=== PATIENT | male | born 1975 | race Caucasian/White ===

== ENCOUNTER 2016-05-03 10:37 | Emergency (ER) | payer OTHER ==
[2016-05-03 11:13] VITALS: RESP 18; TEMP 98
[2016-05-03] MEDS ORDERED: NS 1,000 ML IV ONE (11:13)
[2016-05-03] MEDS ORDERED: ONDANSETRON 4 MG/2 ML VIAL IVP ONE ×2 (11:14→13:09)
[2016-05-03 11:24] LABS: % IMMATURE GRANULYOCYTES 0.4 % (0.0-1.1); ABSOLUTE IMMATURE GRANULOCYTES 0.03 10^3/uL (0.00-0.10); ADD DIFF? NO; ADD MORPH? NO; ADD SCAN? NO; ATYPICAL LYMPHOCYTE FLAG 20 (0-99); FRAGMENT RBC FLAG 0 (0-99); HEMATOCRIT 48.7 % (40.0-51.0); HEMOGLOBIN 16.6 g/dL (13.7-17.5); LEFT SHIFT FLG 0 (0-99); LIPEMIA HEMOLYSIS FLAG 90 (0-99); MEAN CELL HEMOGLOBIN 29.9 pg (27.9-34.1); MEAN CELL HEMOGLOBIN CONCENTR. 34.1 g/dL (32.4-36.7); MEAN CELL VOLUME 87.7 fL (81.5-99.8); MEAN PLATELET VOLUME 9.8 fL (8.7-11.7); PLATELET CLUMPS FLAG 10 (0-99); PLATELET COUNT 183 10^3/uL (150-400); RED BLOOD CELL COUNT 5.55 10^6/uL (4.40-6.38); RED CELL DISTRIBUTION WIDTH 12.2 % (11.5-15.2)
--- NOTE | 2016-05-03 11:24 | UCPHY ---
H & P Patient Type: New <Mami Corbett M - Last Filed: 05/03/16 13:15> Smoking Status: Never smoked <Fozia Ward - Last Filed: 05/03/16 15:18> Time Seen by Provider: 05/03/16 11:05 HPI/ROS: CHIEF COMPLAINT: Vomiting HISTORY OF PRESENT ILLNESS: 41-year-old male presents to urgent care by private vehicle with multiple episodes of vomiting. Patient states 2 days ago he started feeling sick when he was at work. He vomited. His brought him to his primary care provider. He had normal laboratory studies. He had a negative influenza swab. He states he stated from work yesterday and was feeling better and then early this morning around 6:00 a.m. he developed recurring vomiting. He has vomited at least 6 or 7 times since this morning. No diarrhea. No abdominal pain. No chest pain or difficulty breathing. No other URI symptoms. No fevers or chills. No melena. REVIEW OF SYSTEMS: Constitutional: No fever, no chills. Eyes: No double or blurry vision. ENT: No sore throat. Respiratory: No cough, no shortness of breath. Cardiac: No chest pain. Gastrointestinal: Vomiting as above. No abdominal pain. Loose bowel movement today. Genitourinary: No dysuria. Musculoskeletal: No neck or back pain. Skin: No rashes. Neurological: No headache. (Fozia Ward) Past Medical/Surgical History: Negative (Fozia Ward) Social History: (Fozia Ward) Physical Exam: General Appearance: Alert, no distress. Vital signs are stable. at bedside. Eyes: Pupils equal and round. Extraocular motions are all intact. ENT: Mouth: Mucous membranes dry. Respiratory: No wheezing, rhonchi, or rales, lungs are clear to auscultation. Cardiovascular: Regular rate and rhythm. Gastrointestinal: Abdomen is soft and nontender, no masses, no rebound or guarding, bowel sounds normal. No CVA tenderness bilaterally. Neurological: Alert and oriented x 3, cranial nerves II through XII grossly intact Skin: Warm and dry, no rashes. Musculoskeletal: Nontender to palpate along the cervical, thoracic or lumbar spine. Neck is supple. Extremities: Full range of motion and no peripheral edema. Psychiatric: Patient is oriented X 3, there is no agitation. (Fozia Wrad) Constitutional: Initial Vital Signs Temperature (C) 36.6 C 05/03/16 11:00 Heart Rate 90 05/03/16 11:00 Respiratory Rate 18 05/03/16 11:00 Blood Pressure 128/80 H 05/03/16 11:00 O2 Sat (%) 98 05/03/16 11:00 O2 Delivery Mode Room Air Allergies/Adverse Reactions: No Known Allergies Allergy (Unverified 05/03/16 11:00) Home Medications: Medication Instructions Recorded Ondansetron Odt [Zofran Odt] 4 mg PO Q4PRN #5 tab 05/03/16 Medical Decision Making <Mami Corbett - Last Filed: 05/03/16 13:15> <Fozai Ward - Last Filed: 05/03/16 15:18> ED Course/Re-evaluation: 41-year-old male presents with multiple episodes of vomiting. He has no abdominal pain. Laboratory studies are unremarkable. Patient received IV normal saline as well as IV Zofran. Upon discharge she was feeling much better and was tolerating p.o. fluids. He is comfortable being discharged home. (Fozia Ward) Differential Diagnosis: Including but not limited to gastroenteritis, gastritis, acute appendicitis, GERD, peptic ulcer disease, cholecystitis, cholelithiasis, pancreatitis (Fozia Ward) Other Provider: The patient was evaluated and managed by the Physician Yarn Washer/ Nurse Practitioner. I discussed the patient's presentation and course with the midlevel provider with them and agree with the evaluation. My co-signature indicates that I have reviewed this chart and I agree with the findings and plan of care as documented. I am the secondary supervising physician. (Mami Corbett) - Data Points Laboratory Results: Laboratory Results 05/03/16 11:20 05/03/16 11:20 05/03/16 11:20 WBC 6.95 10^3/uL (3.80-9.50) RBC 5.55 10^6/uL (4.40-6.38) Hgb 16.6 g/dL (13.7-17.5) Hct 48.7 % (40.0-51.0) MCV 87.7 fL (81.5-99.8) MCH 29.9 pg (27.9-34.1) MCHC 34.1 g/dL (32.4-36.7) RDW 12.2 % (11.5-15.2) Plt Count 183 10^3/uL (150-400) MPV 9.8 fL (8.7-11.7) Neut % (Auto) 79.6 H % (39.3-74.2) Lymph % (Auto) 10.6 L % (15.0-45.0) [place] % (Auto) 7.8 % (4.5-13.0) Eos % (Auto) 1.0 % (0.6-7.6) Baso % (Auto) 0.6 % (0.3-1.7) Nucleat RBC Rel Count 0.0 % (0.0-0.2) Absolute Neuts (auto) 5.53 10^3/uL (1.70-6.50) Absolute Lymphs (auto) 0.74 L 10^3/uL (1.00-3.00) Absolute Monos (auto) 0.54 10^3/uL (0.30-0.80) Absolute Eos (auto) 0.07 10^3/uL (0.03-0.40) Absolute Basos (auto) 0.04 10^3/uL (0.02-0.10) Absolute Nucleated RBC 0.00 10^3/uL (0-0.01) Immature Gran % 0.4 % (0.0-1.1) Immature Gran # 0.03 10^3/uL (0.00-0.10) Sodium 140 mEq/L (134-144) Potassium 3.7 mEq/L (3.5-5.2) Chloride 103 mEq/L (97-110) Carbon Dioxide 26 mEq/l (22-31) Anion Gap 11 mEq/L (8-16) BUN 10 mg/dL (7-23) Creatinine 1.0 mg/dL (0.7-1.3) Estimated GFR > 60 Glucose 99 mg/dL (70-100) Calcium 8.7 mg/dL (8.5-10.4) Total Bilirubin 0.6 mg/dL (0.1-1.4) Conjugated Bilirubin 0.3 mg/dL (0.0-0.5) Unconjugated Bilirubin 0.3 mg/dL (0.0-1.1) AST 34 IU/L (17-59) ALT 53 IU/L (21-72) Alkaline Phosphatase 69 IU/L (38-126) Total Protein 6.7 g/dL (6.3-8.2) Albumin 3.6 g/dL (3.5-5.0) Lipase 142.0 IU/L (23-300) Medications Given: Discontinued Medications Sodium Chloride (Ns) 1,000 mls @ 0 mls/hr IV ONCE ONE PRN Reason: Wide Open Stop: 05/03/16 11:14 Last Admin: 05/03/16 11:37 Dose: 1,000 mls Ondansetron HCl (Zofran) 4 mg IVP EDNOW ONE Stop: 05/03/16 11:15 Last Admin: 05/03/16 11:37 Dose: 4 mg Ondansetron HCl (Zofran) 4 mg IVP EDNOW ONE Stop: 05/03/16 13:10 Last Admin: 05/03/16 13:23 Dose: 4 mg Departure <Mami Corbett - Last Filed: 05/03/16 13:15> <Fozia Ward - Last Filed: 05/03/16 15:18> - Departure Disposition: Home, Routine, Self-Care Clinical Impression: Gastroenteritis Condition: Good Instructions: Gastroenteritis (ED) Additional Instructions: Clear liquids and then slowly advance diet as tolerated. Return if you developed fever, abdominal pain, or if you feel worse in any way. Zofran as needed for nausea. Referrals: George Bruno DO [Doctor of Osteopathy] - 1 day, if not improved (Primary care provider health information director) Prescriptions: Ondansetron Odt [Zofran Odt] 4 mg PO Q4PRN #5 tab - PQRS PQRS Measurement: Not applicable (Mami Corbett)
[2016-05-03 11:32] LABS: ALANINE AMINOTRANSFERASE 53 IU/L (21-72); ALBUMIN 3.6 g/dL (3.5-5.0); ALKALINE PHOSPHATASE 69 IU/L (38-126); ANION GAP 11 mEq/L (8-16); ASPARTATE AMINOTRANSFERASE 34 IU/L (17-59); BILIRUBIN,TOTAL 0.6 mg/dL (0.1-1.4); BILIRUBIN-CONJUGATED 0.3 mg/dL (0.0-0.5); BILIRUBIN-UNCONJUGATED 0.3 mg/dL (0.0-1.1); CALCIUM 8.7 mg/dL (8.5-10.4); CARBON DIOXIDE 26 mEq/l (22-31); CHLORIDE 103 mEq/L (97-110); GLOMERULAR FILTRATION RATE > 60; GLUCOSE 99 mg/dL (70-100); POTASSIUM 3.7 mEq/L (3.5-5.2); SODIUM 140 mEq/L (134-144); TOTAL PROTEIN 6.7 g/dL (6.3-8.2)
[2016-05-03 13:48] VITALS: BP 104/70; PULSE 84; O2SAT 96
== END 2016-05-03 13:41 | disposition home or self-care (01) ==
LOC: CED 10:37
DX: K52.9 Noninfective gastroenteritis and colitis, unspecified (principal)
CPT/HCPCS: 80048-PO; 80076-PO; 83690-PO; 85025-PO; 96361-PO; 96374-PO; 96376-PO; 99203-PO; G0463-PO; J2405